=== PATIENT | female | born 1950 | race Caucasian/White ===

== ENCOUNTER 2017-12-20 15:08 | Inpatient (IN) | payer SELFPAY ==
[~2017-12-20] VITALS: Ht 160 cm; Wt 87.0 kg
[2017-12-20 16:05] LABS: ALBUMIN 4.2 g/dL (3.2-4.8); CHLORIDE 106 mEq/L (99-109); POTASSIUM 4.7 mEq/L (3.7-5.4); SODIUM 141 mEq/L (136-147)
[2017-12-20 16:07] LABS: GLUCOSE 132 mg/dL (70-99)
[2017-12-20 16:08] LABS: TOTAL PROTEIN 7.8 g/dL (6.4-8.3)
[2017-12-20 16:09] LABS: TOTAL BILIRUBIN 1.2 mg/dL (0.0-1.0)
[2017-12-20 16:11] LABS: ALKALINE PHOSPHATASE 81 IU/L (3-129); GFR ESTIMATE (CALCULATED) 59 mL/min/
[2017-12-20 16:12] LABS: UREA NITROGEN (BUN) 14 mg/dL (9-23)
[2017-12-20 16:13] LABS: AST (GOT) 29 IU/L (2-34)
[2017-12-20 16:14] LABS: ALT (GPT) 19 IU/L (3-49); LIPASE 26 U/L (1.0-51.0)
[2017-12-20 16:17] LABS: TROP-I INTERPRETATION NEGATIVE; TROPONIN-I < 0.01 ng/mL (0.0-0.30)
[2017-12-20 16:35] LABS: HEMATOCRIT 41.7 % (36.0-46.0); HEMOGLOBIN 14.6 G/DL (11.9-15.5); MCH 31.8 PG (29.0-34.0); MCV 90.8 FL (83-99); PLATELET COUNT 175 K/uL (156-360); RBC DIS.WIDTH-CV 12.3 % (11.8-14.6); RBC DIS.WIDTH-SD 40.1 % (39-53); RED BLOOD COUNT 4.59 M/uL (3.80-5.20); WHITE BLOOD COUNT 10.3 K/uL (4.1-10.2)
[2017-12-20 19:04] LABS: TROP-I INTERPRETATION NEGATIVE; TROPONIN-I < 0.01 ng/mL (0.0-0.30)
[2017-12-20] MEDS ORDERED: ZYRTEC10 M3 PO (20:23)
[2017-12-20] MEDS ORDERED: BENADRYL ALLERG25 MG PO (20:23)
[2017-12-20] MEDS ORDERED: TYLENOL EXTRA500 MG PO (20:24)
[2017-12-20] MEDS ORDERED: PEPCID COMPLET1 EACH PO (20:24)
[2017-12-20] MEDS ORDERED: ADVIL200 MG PO (20:24)
[2017-12-20 22:20] VITALS: BP 132/72
[2017-12-21 04:42] VITALS: BP 128/79
[2017-12-21 05:22] LABS: HEMATOCRIT 38.7 % (36.0-46.0); HEMOGLOBIN 13.2 G/DL (11.9-15.5); MCH 31.4 PG (29.0-34.0); MCHC 34.1 G/DL (30.0-36.0); MCV 91.9 FL (83-99); PLATELET COUNT 157 K/uL (156-360); RBC DIS.WIDTH-CV 12.6 % (11.8-14.6); RBC DIS.WIDTH-SD 41.6 % (39-53); RED BLOOD COUNT 4.21 M/uL (3.80-5.20); WHITE BLOOD COUNT 12.6 K/uL (4.1-10.2)
[2017-12-21 05:44] LABS: ALBUMIN 3.8 G/DL (3.2-4.8); ALKALINE PHOSPHATASE 65 IU/L (3-129); ALT (GPT) 31 IU/L (3-49); AST (GOT) 42 IU/L (2-34); CHLORIDE 108 MEQ/L (99-109); CREATININE 0.8 MG/DL (0.6-1.3); GFR ESTIMATE (CALCULATED) > 59 mL/min/; GLUCOSE 124 mg/dL (70-99); SODIUM 139 MEQ/L (136-147); TOTAL BILIRUBIN 1.2 MG/DL (0.0-1.0); TOTAL PROTEIN 6.5 G/DL (6.4-8.3); UREA NITROGEN (BUN) 12 mg/dL (9-23)
[2017-12-21 05:57] LABS: POTASSIUM 3.7 MEQ/L (3.7-5.4)
[2017-12-21 08:46] VITALS: BP 126/68
[2017-12-21 12:30] VITALS: BP 112/46
[2017-12-21 15:44] VITALS: BP 117/68
[2017-12-22 00:11] VITALS: BP 119/52
[2017-12-22 07:30] VITALS: BP 118/70
[2017-12-22 10:47] VITALS: BP 112/60
[2017-12-22 15:58] VITALS: BP 125/62
[2017-12-22 23:34] VITALS: BP 121/59
[2017-12-23 07:35] VITALS: BP 143/76
[2017-12-23 16:30] VITALS: BP 117/59
[2017-12-23 20:22] VITALS: BP 103/56
[2017-12-23 23:47] VITALS: BP 118/65
[2017-12-24 04:00] VITALS: BP 135/62
[2017-12-24 04:15] VITALS: BP 135/62
[2017-12-24 06:10] LABS: HEMATOCRIT 31.9 % (36.0-46.0); MCH 31.9 PG (29.0-34.0); MCHC 33.9 G/DL (30.0-36.0); MCV 94.1 FL (83-99); PLATELET COUNT 172 K/uL (156-360); RBC DIS.WIDTH-CV 12.5 % (11.8-14.6); RBC DIS.WIDTH-SD 43.4 % (39-53); RED BLOOD COUNT 3.39 M/uL (3.80-5.20)
[2017-12-24 06:17] LABS: HEMOGLOBIN 10.8 G/DL (11.9-15.5)
[2017-12-24 06:25] LABS: ALKALINE PHOSPHATASE 94 IU/L (3-129); ALT (GPT) 25 IU/L (3-49); AST (GOT) 42 IU/L (2-34); CHLORIDE 109 MEQ/L (99-109); CREATININE 0.9 MG/DL (0.6-1.3); GFR ESTIMATE (CALCULATED) > 59 mL/min/; GLUCOSE 135 mg/dL (70-99); POTASSIUM 4.1 MEQ/L (3.7-5.4); SODIUM 140 MEQ/L (136-147); TOTAL PROTEIN 5.9 G/DL (6.4-8.3)
[2017-12-24 06:27] LABS: TOTAL BILIRUBIN 0.4 MG/DL (0.0-1.0); UREA NITROGEN (BUN) 30 mg/dL (9-23)
[2017-12-24 08:03] VITALS: BP 119/60
[2017-12-24 16:30] VITALS: BP 118/65
[2017-12-24 23:46] VITALS: BP 135/67
[2017-12-25 05:58] LABS: HEMATOCRIT 34.3 % (36.0-46.0); HEMOGLOBIN 11.3 G/DL (11.9-15.5); MCHC 32.9 G/DL (30.0-36.0); PLATELET COUNT 203 K/uL (156-360); RBC DIS.WIDTH-CV 12.5 % (11.8-14.6); RBC DIS.WIDTH-SD 43.3 % (39-53); RED BLOOD COUNT 3.65 M/uL (3.80-5.20); WHITE BLOOD COUNT 7.7 K/uL (4.1-10.2)
[2017-12-25 06:24] LABS: ALBUMIN 2.9 G/DL (3.2-4.8); ALKALINE PHOSPHATASE 78 IU/L (3-129); ALT (GPT) 21 IU/L (3-49); AST (GOT) 24 IU/L (2-34); CHLORIDE 112 MEQ/L (99-109); CREATININE 0.9 MG/DL (0.6-1.3); GFR ESTIMATE (CALCULATED) > 59 mL/min/; POTASSIUM 3.9 MEQ/L (3.7-5.4); SODIUM 144 MEQ/L (136-147); TOTAL PROTEIN 5.4 G/DL (6.4-8.3); UREA NITROGEN (BUN) 23 mg/dL (9-23)
[2017-12-25 06:25] LABS: GLUCOSE 98 mg/dL (70-99); TOTAL BILIRUBIN 0.3 MG/DL (0.0-1.0)
[2017-12-25 08:11] VITALS: BP 143/88
[2017-12-25 16:32] VITALS: BP 142/66
[2017-12-25] MEDS ORDERED: DOCUSATE SODIU100 MG PO (19:32)
[2017-12-25] MEDS ORDERED: HYDROCODON-ACE1 EAC7 PO (19:32)
== END 2017-12-25 21:20 | disposition home or self-care (01) | DRG 419 ==
LOC: EME 15:08 → EDOF 20:34 → 3EAST 20:34 → ENRESERV 20:51 → 3EAST 22:03
PROVIDERS: Nurse Practitioner Family; Thoracic Surgery (Cardiothoracic Vascular Surgery)
PROC: 0FT44ZZ Resection of Gallbladder, Percutaneous Endoscopic Approach (ICD-10-PCS; principal; 2017-12-23)
DX: K80.12 Calculus of gallbladder with acute and chronic cholecystitis without obstruction (principal); N20.0 Calculus of kidney; I09.9 Rheumatic heart disease, unspecified; K82.8 Other specified diseases of gallbladder; E66.9 Obesity, unspecified; R00.0 Tachycardia, unspecified; Z91.041 Radiographic dye allergy status; Z91.013 Allergy to seafood; Z87.442 Personal history of urinary calculi; Z68.33 Body mass index [BMI] 33.0-33.9, adult
CPT/HCPCS: 71046; 71275; 76705; 80053; 83690; 84484; 85027; 85379; 87070; 87075; 87205; 88304; 93005; 99281; 99285; J0131; J0690; J0696; J1100; J1170; J1200; J1644; J1885; J2250; J2405; J2710; J2765; J3010; J7030; J7120; J7643; S0020